=== PATIENT | female | born 1950 | race Caucasian/White ===

== ENCOUNTER 2016-12-21 15:22 | Emergency (ER) | payer MEDICARE, OTHER ==
[2016-12-21 15:43] VITALS: BP 142/77
--- NOTE | 2016-12-21 15:59 | UC ---
UC General HPI - HPI Summary HPI Summary: compliant of rash on her right thigh removed tick and seen by her PCP took a one day dose of doxyxycline rash appeared on her leg 2 days ago and has been getting bigger denies fever and pain - History of Current Complaint Chief Complaint: Jarocho Stated Complaint: TICK BITE WITH ACCOMPANYING RASH Time Seen by Provider: 12/21/16 15:52 Hx Obtained From: Patient - Allergy/Home Medications Allergies/Adverse Reactions: Allergies Allergy/AdvReac Type Severity Reaction Status Date / Time Aspirin Allergy Hives Verified 12/21/16 15:43 Histamine Allergy Hives/Diff. Verified 12/21/16 15:43 Breathing/I tching PMH/Surg Hx/FS Hx/Imm Hx Previously Healthy: Yes Respiratory History: Asthma - Surgical History Surgical History: Yes Surgery Procedure, Year, and Place: BIOPSY RIGHT BREAST 2007. OVARIAN CYST REMOVED 1997. . TONSILS A CHILD - Social History Occupation: Employed Full-time Lives: With Family Alcohol Use: None Substance Use Type: None Smoking Status (MU): Never Smoked Tobacco Review of Systems Constitutional: Negative Skin: Rash Eyes: Negative ENT: Negative Respiratory: Negative Cardiovascular: Negative Gastrointestinal: Negative Genitourinary: Negative Motor: Negative Neurovascular: Negative Musculoskeletal: Negative Neurological: Negative Psychological: Negative All Other Systems Reviewed And Are Negative: Yes Physical Exam Triage Information Reviewed: Yes Appearance: No Pain Distress, Well-Nourished Vital Signs: Initial Vital Signs Temp 98.2 F 12/21/16 15:39 Pulse 68 12/21/16 15:39 Resp 16 12/21/16 15:39 BP 142/77 12/21/16 15:39 Pulse Ox 100 12/21/16 15:39 Vital Signs Reviewed: Yes Eyes: Positive: Conjunctiva Clear ENT: Positive: Pharynx normal, TMs normal Neck: Positive: No Lymphadenopathy Respiratory: Positive: Lungs clear, Normal breath sounds, No respiratory distress Cardiovascular: Positive: RRR, No Murmur Abdomen Description: Positive: Nontender, Soft Bowel Sounds: Positive: Present Musculoskeletal: Positive: No Edema Neurological: Positive: Alert Psychological Exam: Normal Course/Dx - Course Course Of Treatment: will start course of doxycylcline- refuses labwork- followup with PCP - Differential Dx - Multi-Symptom Provider Diagnoses: erythema migrans- tick bite. elevated blood pressure Discharge - Discharge Plan Condition: Stable Disposition: HOME Prescriptions: DOXYcycline CAP(*) [DOXYcycline 100MG CAP(*)] 100 mg PO BID #42 cap Patient Education Materials: Tick Bite (ED), Lyme Disease (ED) Referrals: Alexander Montoya MD [Primary Care Provider] - Additional Instructions: Please start antibiotic as directed Increase fluids and rest Take acetaminophen or ibuprofen for fever or pain please followup with Dr Montoya for further treatment Please review your discharge instructions. If your symptoms do not improve please call your primary care provider or return to urgent care. Your blood pressure is elevated. Please contact your primary care provider within 1 -4 weeks for further evaluation.
== END 2016-12-21 16:15 | disposition home or self-care (01) ==
LOC: UCEAST 15:22
DX: A26.0 Cutaneous erysipeloid (principal); R03.0 Elevated blood-pressure reading, without diagnosis of hypertension
CPT/HCPCS: 99212; G0463